=== PATIENT | male | born 1960 | race Caucasian/White ===

== ENCOUNTER 2018-09-13 16:21 | Day surgery (SDC) | payer OTHER ==
[~2018-09-13] VITALS: Ht 182.9 cm; Wt 56.9 kg
[2018-09-13 16:39] VITALS: BP 157/97; Ht 182.9 cm; Wt 56.9 kg
[2018-09-13 18:07] LABS: BASOPHILS 0.6 % (0-2); EOSINOPHILS 3.5 % (0-7); HEMATOCRIT 37.5 % (42.0-54.0); HEMOGLOBIN 12.6 g/dL (13.5-17.5); IMMATURE GRANULOCYTES 0.2 % (0-5); LYMPHOCYTES 16.1 % (15-50); MCH 28.9 pg (26.0-34.0); MCHC 33.6 g/dL (31.0-37.0); MEAN PLATELET VOLUME 8.7 fL (7.4-10.4); MONOCYTES 11.9 % (2-11); NEUTROPHILS 67.7 % (40-80); PLATELET COUNT 190 10x3/uL (130-400); RBC 4.36 10x6/uL (4.20-6.10); WBC 4.8 10x3/uL (4.8-10.8)
[2018-09-13 18:19] LABS: INR 0.96 (0.85-1.17); PROTIME 12.3 SECONDS (11.6-15.0)
[2018-09-13 18:26] LABS: ALBUMIN 3.4 g/dL (3.4-5.0); ANION GAP 12.6 mmol/L (8-16); BILIRUBIN - TOTAL 0.47 mg/dL (0.2-1.3); CALCIUM 9.1 mg/dL (8.5-10.1); CARBON DIOXIDE 29.4 mmol/L (21.0-32.0); CREATININE - SERUM 1.1 mg/dL (0.6-1.3); PROTEIN - SERUM 7.3 g/dL (6.4-8.2)
--- NOTE | 2018-09-13 20:55 | NUR ---
ADMITTED TO ROOM FRO RECOVERY AROUSES EASILY, DENIES PAIN, NO RECTAL BLEEDING NOTED CALL LIGHT IN REACH INSTRUCTED PT AND DAUGHTER WAITING DR KAUR TO COME FOR DISCHARGE ORDERS
--- NOTE | 2018-09-13 22:00 | NUR ---
DR KAUR HERE SPOKE WITH PT AND DAUGHTER DISCHARGE ORDERS RECIEVED PERSCRIPTION GIVEN FOR PROCTOFOAM, IV DCD, DISCHARGE PAPER REVIEVED WITH PT AND DAUGHTER COPY GIVEN, DISCHARGED HOME VIA W/C WITH DAUGHTER
== END 2018-09-13 22:48 | disposition home or self-care (01) ==
LOC: D.ER 16:21 → D.OPS 16:21 → D.MS 20:21 → D.ER 20:21 → D.MS 22:48 → D.OPS 22:48
PROVIDERS: Family Medicine; Internal Medicine Gastroenterology
PROC: 0DCP8ZZ Extirpation of Matter from Rectum, Via Natural or Artificial Opening Endoscopic (ICD-10-PCS; principal; 2018-09-13 18:41)
DX: T18.5XXA Foreign body in anus and rectum, initial encounter (principal); K62.6 Ulcer of anus and rectum; X58.XXXA Exposure to other specified factors, initial encounter; K64.8 Other hemorrhoids